=== PATIENT | male | born 1985 | race Caucasian/White ===

== ENCOUNTER 2018-08-23 21:11 | Emergency (ER) | payer BC, OTHER ==
[2018-08-23] MEDS ORDERED: MORPHINE SULFATE 8 MG/ML VIAL ONE (22:08)
== END 2018-08-23 22:47 | disposition home or self-care (01) ==
LOC: EDH 21:11
DX: G89.29 Other chronic pain (principal); M54.5 Low back pain; R51 Headache; M54.2 Cervicalgia; F90.9 Attention-deficit hyperactivity disorder, unspecified type; Z87.891 Personal history of nicotine dependence; Z88.8 Allergy status to other drugs, medicaments and biological substances
CPT/HCPCS: 96372; 99283; J2270